=== PATIENT | female | born 1990 | race Caucasian/White ===

== ENCOUNTER 2024-10-30 07:54 | Emergency (ER) | payer BC ==
[~2024-10-30] VITALS: Ht 157.5 cm; Wt 76.4 kg
[2024-10-30 07:57] VITALS: TEMP 99.1
[2024-10-30] MEDS ORDERED: GABA-1201 PO (08:02)
[2024-10-30] MEDS ORDERED: HYDR-4584 PO (08:03)
[2024-10-30] MEDS ORDERED: QUET25TA PO (08:03)
[2024-10-30] MEDS ORDERED: CLON0.1T2 PO (08:03)
[2024-10-30] MEDS ORDERED: BACL10TA PO (08:03)
[2024-10-30] MEDS ORDERED: OXCA300T70 PO (08:03)
[2024-10-30] MEDS ORDERED: PRAZ1 PO (08:03)
[2024-10-30 08:13] LABS: COVID AG,FIA SOURCE NASAL SWAB
[2024-10-30 08:31] LABS: INFLUENZA TYPE A NEGATIVE FOR TYPE A (NEGATIVE); INFLUENZA TYPE B NEGATIVE FOR TYPE B (NEGATIVE)
[2024-10-30 08:34] LABS: SARS-COV2 (COVID) ANTIGEN,FIA Positive (Negative)
[2024-10-30] MEDS: KETOROLAC TROMETHAMINE 30 MG/ML VIAL IM ONE (09:20)
[2024-10-30] MEDS: DEXAMETHASONE 4 MG TABLET PO ONE (09:20)
[2024-10-30] MEDS: ACETAMINOPHEN 325 MG TABLET PO ONE (09:20)
[2024-10-30 09:22] VITALS: BP 112/71; PULSE 55; RESP 18; O2SAT 97
== END 2024-10-30 10:31 | disposition home or self-care (01) ==
LOC: EMS 07:54
DX: U07.1 COVID-19 (principal); I10 Essential (primary) hypertension; F12.90 Cannabis use, unspecified, uncomplicated; F31.9 Bipolar disorder, unspecified; Z88.5 Allergy status to narcotic agent; Z79.899 Other long term (current) drug therapy
CPT/HCPCS: 99283; 87426; 87804; 96372; J1885; J8540